=== PATIENT | female | born 1990 | race Caucasian/White ===

== ENCOUNTER 2018-09-19 12:03 | Emergency (ER) | payer OTHER ==
[~2018-09-19] VITALS: Ht 154.9 cm; Wt 52.2 kg
[2018-09-19] MEDS ORDERED: ADDERALL XR 2020 MG ORAL (12:17)
[2018-09-19 13:15] VITALS: BP 112/75
--- NOTE | 2018-09-19 13:23 | Emergency Room Report ---
History of Present Illness General Chief Complaint: Medication Refill Source: Patient Present Illness HPI 28-year-old female presents to the emergency department requesting medication refill for her ADHD medication. Patient reports that she takes 20 mg extended release Adderall and she has been out of her medication for 3 days. Patient states that her psychiatrist unexpectedly canceled her appointment and her insurance told her to go to the ER. Patient denies SI, HI, delusions, hallucinations, substance use, or manic episodes. Pt. denies Pain, CP, Palpitations, SOB or abdominal pain. Pt. denies previous psychiatric hospitalizations. No other complaints at this time beside request for medication refill. Allergies: Coded Allergies: No Known Allergies (Unverified , 09/19/18) Patient History Past Medical History: psych hx - ADHD Past Surgical History: none Pertinent Family History: none Last Menstrual Period: 09/13/2018 Now: No Reviewed Nursing Documentation: PMH: Agreed; PSxH: Agreed Nursing Documentation-PMH Past Medical History: No History, Except For Review of Systems All Other Systems: negative except mentioned in HPI Physical Exam Vital Signs Date Time Temp Pulse Resp B/P (MAP) Pulse Ox O2 Delivery O2 Flow Rate FiO2 09/19/18 12:14 98.2 68 14 123/84 100 Room Air Sp02 EP Interpretation: reviewed, normal General Appearance: well appearing, no apparent distress, alert, GCS 15, non- toxic Head: normocephalic, atraumatic Eyes: bilateral eye normal inspection, bilateral eye PERRL ENT: hearing grossly normal, normal voice Neck: full range of motion Respiratory: lungs clear, normal breath sounds, speaking full sentences Cardiovascular #1: regular rate, rhythm Musculoskeletal: gait/station normal, normal range of motion Neurologic: alert, oriented x3, responsive, motor strength/tone normal, sensory intact, normal gait, speech normal, grossly normal Psychiatric: normal inspection, judgement/insight normal, mood/affect normal, no suicidal/homicidal ideation, no delusions Skin: normal color, no rash, warm/dry, well hydrated Medical Decision Making PA Attestation Dr. Mera is my supervising Physician whom patient management has been discussed with. Diagnostic Impression: Primary Impression: Encounter for medical screening examination ER Course 28-year-old female presents to the emergency department requesting medication refill for her ADHD medication. Patient reports that she takes 20 mg extended release Adderall and she has been out of her medication for 3 days. Patient states that her psychiatrist unexpectedly canceled her appointment and her insurance told her to go to the ER. Patient denies SI, HI, delusions, hallucinations, substance use, or manic episodes. Pt. denies Pain, CP, Palpitations, SOB or abdominal pain. Pt. denies previous psychiatric hospitalizations. No other complaints at this time beside request for medication refill. Ddx considered but are not limited to: acute psychosis, danger to self or others , drug seeking, OD, urgent need for medication refill request, non -urgent medication refill request just to name a few. Vital signs: are WNL, pt. is afebrile H&PE are most consistent with non- urgent need for medication refill. Pt. does not have evidence to suggest high probability of danger to self or others. pt. is Alert, Oriented, and able to make decisions. ORDERS: none required at this time, the diagnosis is clinical ED INTERVENTIONS: None required at this time. -Patient is given multiple resources for nonurgent psychiatric medication management such as [facility] mental health urgent care. Discussed with patient that this is a medication that is not normally prescribed by an emergency department and therefore medication refill and management needs to be performed by an appropriate provider. DISCHARGE: At this time pt. is stable for d/c to home. Will provide printed patient care instructions, and any necessary prescriptions. Care plan and follow up instructions have been discussed with the patient prior to discharge. Last Vital Signs Date Time Temp Pulse Resp B/P (MAP) Pulse Ox O2 Delivery O2 Flow Rate FiO2 09/19/18 13:15 98.2 78 17 112/75 100 Room Air Disposition: HOME, SELF-CARE Condition: Stable Patient Instructions: Medical Screening Exam, Medicine Refill at the Emergency Department Additional Instructions: Follow up with a Primary Care Provider in 3-5 days, or F/U with [facility] Urgent Care for medication management --Please review list of primary care clinics, if you do not already have a primary care provider Return sooner to ED if new symptoms occur, or current symptoms become worse. - Please note that this Emergency Department Report was dictated using [employer] transcription[employer] technology software, occasionally this can lead to erroneous entry secondary to interpretation by the dictation equipment. Kirsten Moore Sep 19, 2018 13:23
[2018-09-19 13:50] VITALS: BP 112/75
== END 2018-09-19 13:50 | disposition home or self-care (01) ==
LOC: EMR 13:45
DX: Z76.0 Encounter for issue of repeat prescription (principal); F90.9 Attention-deficit hyperactivity disorder, unspecified type
CPT/HCPCS: 99282